=== PATIENT | female | born 1985 | race Caucasian/White ===

== ENCOUNTER 2016-08-26 05:45 | Emergency (ER) | payer MEDICAID ==
[~2016-08-26] VITALS: Ht 152.4 cm; Wt 38.6 kg
[~2016-08-26 05:45] MED LIST: ELAVIL25 MG PO; FERROUS SULFAT325 M1 PO; LACTULOSE10 GM/152 PO; PROTONIX40 MG PO; REGLAN10 MG PO
[2016-08-26 05:50] VITALS: BP 121/68
--- NOTE | 2016-08-26 06:03 | NUR ---
BIB WHEELCHAIR TO ER BED 4
--- NOTE | 2016-08-26 06:14 | NUR ---
PATIENT PRESENTS TO ED WITH abd pain x 2 days, nausea, denies diarrhea and vomitting SKIN IS PINK/WARM/DRY; AAOX4 WITH EVEN AND STEADY GAIT; LUNGS CLEAR BL; HR EVEN AND REGULAR; PT DENIES ANY FEVER, CP, SOB, OR COUGH AT THIS TIME; PATIENT STATES PAIN OF 10/10 AT THIS TIME; VSS; PATIENT POSITIONED FOR COMFORT; HOB ELEVATED; BEDRAILS UP X2; BED DOWN. ER MD MADE AWARE OF PT STATUS.
[2016-08-26] MEDS ORDERED: ONDANSETRON 4 MG/2 ML VIAL IM ONE (06:15)
[2016-08-26] MEDS ORDERED: PANTOPRAZOLE 40 MG TABEC PO ONE (06:15)
[2016-08-26] MEDS ORDERED: BELLADONNA/PHENOBARBITAL 5 ML ORASYR PO ONE (06:15)
[2016-08-26] MEDS ORDERED: LIDOCAINE VISCOUS 2% 20 ML UDC PO ONE (06:15)
[2016-08-26] MEDS ORDERED: ALUMINUM HYD/MAG/SIMETHICONE 30 ML UDC PO ONE (06:15)
[2016-08-26] MEDS ORDERED: KETOROLAC 60 MG/2 ML VIAL IM ONE (06:15)
--- NOTE | 2016-08-26 06:15 | NUR ---
dr figueroa at bedside
--- NOTE | 2016-08-26 07:00 | NUR ---
dr figueroa at bedside
[2016-08-26 07:01] VITALS: BP 108/72
--- NOTE | 2016-08-26 07:02 | NUR ---
Patient discharged with v/s stable. Written and verbal after care instructions given and explained. Patient alert, oriented and verbalized understanding of instructions. Ambulatory with steady gait. All questions addressed prior to discharge. ID band removed. Patient advised to follow up with PMD. Rx of maalox and omeprazole given. Patient educated on indication of medication including possible reaction and side effects. Opportunity to ask questions provided and answered.
== END 2016-08-26 07:02 | disposition home or self-care (01) ==
LOC: MED 05:45
DX: K29.70 Gastritis, unspecified, without bleeding (principal); R03.0 Elevated blood-pressure reading, without diagnosis of hypertension
CPT/HCPCS: 81002; 81025; 96372; 99284; J1885; J2405